=== PATIENT | male | born 1965 | race Caucasian/White ===

== ENCOUNTER → 2020-10-24 | Outpatient (CLI) | payer OTHER ==
--- NOTE | 2020-10-24 10:17 | ECHOF ---
Referral Reason:I10 Essential hypertension; Edema MEASUREMENTS -------- HEIGHT: 182.9 cm WEIGHT: 149.7 kg BP: IVSd: 1.8 cm (0.6 - 1.1) LVIDd: 3.0 cm (3.9 - 5.3) LVPWd: 1.9 cm (0.6 - 1.1) IVSs: 2.1 cm LVIDs: 2.3 cm LVPWs: 2.7 cm Ao Diam: 3.7 cm (2.0 - 3.7) AV Cusp: 2.0 cm (1.5 - 2.6) LA Diam: 3.5 cm (2.7 - 3.8) MV EXCURSION: 23.037 mm (> 18.000) MV EF SLOPE: 102 mm/s (70 - 150) EPSS: 0.6 cm MV E Abhinav: 0.68 m/s MV DecT: 196 ms MV A Abhinav: 0.47 m/s MV E/A Ratio: 1.45 RAP: 5.00 mmHg RVSP: 9.79 mmHg FINDINGS -------- This was a technically difficult study with suboptimal views. The left ventricular size is normal. There is moderate concentric left ventricular hypertrophy. O verall left ventricular systolic function is low-normal with, an EF between 50 - 55 %. The right ventricle is normal in size. The left atrial size is normal. The right atrium was not well visualized. xx ml of Lumason was utilized for enhancement of images. The aortic valve was not well visualized. The mitral valve is normal. There is trace mitral regurgitation. The tricuspid valve appears structurally normal. Trace tricuspid regurgitation present. Right leno tricular systolic pressure is normal at < 35 mmHg. There is no pulmonic regurgitation present. The aortic root size is normal. IVC Not well visulized. There is no pericardial effusion. CONCLUSIONS -------- 1. The left ventricular size is normal. 2. There is moderate concentric left ventricular hypertrophy. 3. Overall left ventricular systolic function is low-normal with, an EF between 50 - 55 %. 4. There is trace mitral regurgitation. 5. Trace tricuspid regurgitation present. 6. There is no pericardial effusion. ROLLWAY MAN: Gerda Morgan RD
== END | disposition home or self-care (01) ==
LOC: RADECHMAIN 08:26
PROVIDERS: ATTEND Family Medicine
DX: I08.1 Rheumatic disorders of both mitral and tricuspid valves (principal)
CPT/HCPCS: 93306; Q9950

== ENCOUNTER → 2021-03-21 | Outpatient (CLI) | payer OTHER ==
--- NOTE | 2021-03-21 13:02 | XR ---
Right hip HISTORY: [id number] RT HIP PAIN 2 views of the right hip There is marked joint space loss, marginal spurring, subchondral geode formation, remodeling of the f emoral head. No fracture or dislocation. Alignment is maintained. There is overlying artifact. IMPRESSION: Osteoarthritis is advanced.
== END | disposition home or self-care (01) ==
LOC: RADXRYALE 10:53
PROVIDERS: ATTEND Physician Assistant Medical
DX: M16.11 Unilateral primary osteoarthritis, right hip (principal)
CPT/HCPCS: 73502

== ENCOUNTER → 2021-06-19 | Outpatient (CLI) | payer OTHER ==
[2021-06-19 14:27] LABS: Partial Thromboplastin Time 26.8 sec (22.0-30.0); Prothrombin Time 10.8 sec (9.0-12.0)
[2021-06-19 18:20] LABS: HGB 15.6 g/dL (13.0-17.0); MCH 28.6 pg (27.0-32.0); MCHC 32.5 g/dL (32.0-37.0); MCV 88.1 fL (80.0-97.0); Mean Platelet Volume 10.7 fL (9.5-12.2); NRBC Per 100 WBC 0 /100 WBCS (0.0-0.0); Platelet Count 256 X 10*3/uL (140-440); RBC 5.45 X 10*6/uL (4.40-5.60); RDW 13.2 % (11.5-14.5); WBC 8.99 X 10*3/uL (4.50-10.00)
[2021-06-19 18:28] LABS: African American GFR (CKD) 106.8 (60.0-200.0); Albumin 4.4 g/dL (3.8-4.9); Albumin/Globulin Ratio 1.42 (1.60-3.17); Anion Gap 10.6 mmol/L (10.00-18.00); BUN/Creat Ratio 25.24 Ratio (12.00-20.00); Blood Urea Nitrogen 23.6 mg/dL (9.0-27.0); Calcium 9.8 mg/dL (8.7-10.3); Carbon Dioxide 26.8 mmol/L (20.0-27.5); Globulin 3.1 g/dL (1.6-3.3); Non-African American GFR(CKD) 92.1 (60.0-200.0); Total Bilirubin 0.6 mg/dL (0.30-1.20); Total Protein 7.5 g/dL (6.2-8.2)
[2021-06-19 18:55] LABS: Appearance,Urine Clear (Clear); Bilirubin,Urine Negative (Negative); Blood,Urine Negative (Negative); Color,Urine Yellow (Yellow); Ketones,Urine Negative (Negative); Nitrite,Urine Negative (Negative); Urobilinogen,Urine 0.2 (0.2,1.0)
== END | disposition home or self-care (01) ==
LOC: LABPAT 11:36
PROVIDERS: ATTEND Orthopaedic Surgery
DX: Z01.812 Encounter for preprocedural laboratory examination (principal)
CPT/HCPCS: 36415; 80053; 81003; 85027; 85610; 85730; 87070

== ENCOUNTER 2021-07-12 10:37 | Day surgery (SDC) | payer OTHER ==
[2021-07-07 15:58] VITALS: BMI 45.3
[~2021-07-12 10:37] MED LIST: ACETAMINOPHEN TAB 500 MG TAB PO PRN; DEXAMETHASONE SOD PHOSPHATE 10 MG/ML 1 ML VIAL IV PRN; DOCUSATE 100 MG CAP PO PRN; FAMOTIDINE 20 MG/2 ML VIAL IVP PRN; HYDROmorphone 0.5 MG/0.5 ML SYRINGE IVP PRN; KETOROLAC 15 MG/ML 1 ML VIAL IVP PRN; LIDOCAINE 1% (10MG/ML) FOR IV START INTRADERMA PRN; ONDANSETRON 4 MG/2 ML VIAL IVP PRN; TRANEXAMIC ACID IN NACL,ISO-OS 1,000 MG in SALINE 1 100ML.BAG IVPB PRN; oxyCODONE ER 10 MG TAB.ER.12H PO PRN
[2021-07-12] MEDS ORDERED: oxyCODONE ER 10 MG TAB.ER.12H PO PRN (11:45)
[2021-07-12] MEDS: LACTATED RINGERS 1,000 ML IV SCH (11:46)
[2021-07-12] MEDS ORDERED: diphenhydrAMINE 50 MG/ML 1 ML VIAL IVP ONE (12:44)
[2021-07-12] MEDS ORDERED: GLYCOPYRROLATE 0.2 MG/ML 2 ML VIAL ONE (13:54)
[2021-07-12] MEDS ORDERED: SUCCINYLCHOLINE CHLORIDE VIAL 200 MG/10 ML VIAL IV ONE (13:54)
[2021-07-12] MEDS ORDERED: PHENYLEPHRINE-0.9% NACL SYG 1,000 MCG/10 ML SYRINGE ONE (13:54)
[2021-07-12] MEDS ORDERED: fentaNYL (PF) 50 MCG/ML 2 ML AMP ONE (13:54)
[2021-07-12] MEDS ORDERED: PROPOFOL 10 MG/ML 20 ML VIAL IV ONE (13:54)
[2021-07-12] MEDS ORDERED: MIDAZOLAM 2 MG/2 ML VIAL ONE (13:54)
[2021-07-12] MEDS ORDERED: HYDROmorphone (PF) 1 MG/ML ONE (13:54)
[2021-07-12] MEDS ORDERED: ROCURONIUM 10 MG/ML (5 ML VIAL) IV ONE (13:54)
[2021-07-12] MEDS ORDERED: NEOSTIGMINE 1 MG/ML 10 ML VIAL ONE (13:54)
[2021-07-12] MEDS ORDERED: LIDOCAINE 2% INJ 20 MG/ML (2 ML VIAL) ONE (13:54)
[2021-07-12] MEDS ORDERED: TRANEXAMIC ACID IN NACL,ISO-OS 1,000 MG/100 ML BAG ONE (13:54)
[2021-07-12] MEDS ORDERED: SODIUM CHLORIDE 0.9% 100 ML with ceFAZolin 3,000 MG IV ONE ×2 (13:59)
[2021-07-12] MEDS: ROPIVACAINE/EPI/CLONIDINE/KET 50 ML SYRINGE MISCELLANE PRN ×2 (15:15→16:36)
[2021-07-12] MEDS ORDERED: LACTATED RINGERS 1,000 ML IV ONE (15:58)
[2021-07-12] MEDS ORDERED: VANCOMYCIN 1,000 MG VIAL MISCELLANE ONE (16:36)
[2021-07-12] MEDS ORDERED: NALOXONE 0.4 MG/ML 1 ML VIAL IV PRN (17:22)
[2021-07-12] MEDS ORDERED: HYDROmorphone 1 MG/ML 1 ML SYRINGE IVP PRN (17:22)
[2021-07-12] MEDS ORDERED: hydrOXYzine pamoate 25 MG CAP PO PRN (17:22)
[2021-07-12] MEDS ORDERED: ONDANSETRON 4 MG/2 ML VIAL IVP PRN (17:22)
[2021-07-12] MEDS ORDERED: HYDROcodone/APAP 5-325MG 1 EACH TAB PO PRN (17:22)
[2021-07-12] MEDS ORDERED: HYDROmorphone 0.5 MG/0.5 ML SYRINGE IVP PRN ×2 (17:22)
--- NOTE | 2021-07-12 17:29 | P.OP ---
Date of Procedure: 07/12/21 Preoperative Diagnosis: 1. Severe right hip osteoarthritis 2. BMI 45.5 3. 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 Jose Alfredo Trident II 54 mm acetabular cup 2. [place] [employer]ign[employer] size #7 high offset femoral stem 3. Biolox delta ceramic head 36 mm, -5 mm neck Anesthesia: GETA Surgeon: Wallace Melgoza Teletype Mechanic #1: Mary Jane Hughes Estimated Blood Loss (ml): 400 IV fluids (ml): 1,200 Pathology: other (Femoral head to pathology) Condition: stable Disposition: PACU Indications for Procedure: I had a long discussion with the patient in the office on the potential risks and complications of an elective total hip replacement through a direct anterior approach. Risks discussed include, but are certainly not limited to, risks from anesthesia, superficial infection requiring local wound care or antibiotics, deep kane-prosthetic joint infection and the treatment required to eradicate infection, intraoperative fracture, postoperative periprosthetic fracture, damage to local blood vessels or nerves particularly the lateral femoral cutaneous nerve, delayed wound healing requiring local wound care or possibly surgical debridement, hip dislocation, leg length discrepancy, soft tissue irritation around the total hip implant such as iliopsoas tendinitis or trochanteric bursitis, wear and osteolysis from the implants, squeaking or audible noises, groin pain, thigh pain, heterotopic ossification, stiffness, aseptic loosening of the implants, dissatisfaction with surgical outcome, need for revision surgery, DVT, PE, swelling of the operative extremity, acute coronary event, stroke, failure to thrive, and possibly loss of life or limb. The patient understands that while these are the most common complications after an elective hip replacement there are certainly other less common complications possible. They were given ample time to ask questions regarding the potential complications of a hip replacement. Following our discussion the patient provided their verbal and written consent to go forward with an elective total hip replacement. Operative Findings: Severe right hip osteoarthritis Description of Procedure: The patient was identified in the preoperative holding area and the correct hip was marked with my initials. I reviewed the procedure and consent with the patient. All of their questions were answered. The patient was then brought back into the operating room by anesthesia. While on the [facility] anesthesia was administered by the anesthesia team. Preoperative antibiotics and tranexamic acid were also given. After the patient was under anesthesia I examined their ankles to determine their preoperative leg length discrepancy. The skin over the anterior aspect of the hip was shaved to remove hair over the site of planned incision. Both feet and ankles were padded with webril and boots for th e [place] were applied. The patient was then carefully transferred onto the [place] table. A perineal post was immediately placed. The arms were placed on arm holders and were well-padded. Both boots were secured to the spars on the [place] table. The patient was positioned so that the pelvis was centered over the post. Nonsterile drapes were applied. A timeout was performed identifying the correct patient, operative extremity, and procedure. At this point fluoroscopy was brought in to take preoperative images of the pelvis and operative hip. Using the standing AP pelvis from the office as a template, a comparable image was obtained with fluoroscopy. A metallic bar was used to create a bi-ischial line for use as a reference to leg length adjustments during the procedure. Global offset was also measured on both the operative and nonoperative leg. Fluoroscopy was then brought out and a pre-scrub using a chlorhexidine scrub brush was performed. The operative limb was then prepped and draped in the standard sterile fashion. An anterior longitudinal incision was made lateral and distal to the ASIS. The skin and subcutaneous tissues were incised sharply. The underlying tensor fasc ia was identified and incised in its midportion. The fascia was dissected free from the underlying muscle and the muscle belly was retracted. A blunt tipped cobra retractor was placed over the superior neck under the muscle fibers of the gluteus minimus. The deep enveloping fascia of the tensor was incised. The anterior leash of vessels were then identified and cauterized. The fascia between the rectus and the capsule was then incised and the pre-capsular fat was excised. A second Cobra was placed inferior to the neck. The interval between the rectus and iliocapsularis and the hip capsule was developed and a retractor was placed carefully over the anterior rim of the acetabulum. A T-shaped anterior capsulotomy was performed. The superior capsular leaflet was left in place in the inferior capsular flap was excised. The Cobra retractors were placed intracapsularly. We then made a femoral neck osteotomy according to preoperative and intraoperative templating and confirmed the level of the osteotomy using fluoroscopic imaging. The femoral head was removed, passed off to the back table, and sized. The superior capsular flap was excised. Retractors were placed circumferentially exposing the acetabulum. We then circumferentially debrided the acetabulum free of labrum and osteophytes. The pulvinar was removed to fully visualize the cotyloid fossa. We then sequentially reamed to achieve peripheral fit and excellent bleeding subchondral bone. The socket was thoroughly irrigated. The acetabular component was impacted into the appropriate position using fluoroscopy to guide version, inclination, and depth of insertion taking care to have a comparable image of the AP pelvis to the standing image taken in the office. An excellent press-fit was achieved and final position was confirmed using fluoroscopy. The press fit was augmented with bony cancellus dome screws. The liner was then impacted into the socket. Attention was then turned to the femur. The remnant dorsal lateral capsule was excised. The short external rotators were visible and protected. A bone hook was used to confirm appropriate translation of the trochanter away from the acetabulum. The leg was then extended and adducted and the bone hook was used to elevate the femur for broaching. Due to the patient's large size and proximal release of the tensor muscle belly off the ASIS was required to gain access to the proximal femur. A box osteotome and blunt tipped canal sound was then utilized to gain access to the femoral canal. We then sequentially broached the femur in appropriate anteversion until excellent torsional stability was achieved. The neck cut was brought flush to the trial broach with a calcar planar. A trial neck and head were then placed onto the broach and the hip was atraumatically reduced under direct visualization. External rotation to 90 was performed to assess stability. Fluoroscopy was brought in. An AP and lateral fluoroscopic image of the proximal femur was obtained to assess position and fill of the trial broach. An AP of the pelvis was then obtained and matched to the preoperative image taken. A bi-ischial bar was then placed and measur ements were taken to assess changes in length and offset. The hip was then carefully dislocated, the proximal femur was exposed, and the trial implants were removed. The wound and proximal femur was thoroughly irrigated using sterile saline and pulsatile lavage. The final femoral implant was dispensed and gently tapped into place generating an excellent press-fit. The trunnion was cleansed and the final head was tapped into place to engage the Mackey taper. The acetabulum was irrigated and visualized to be free of debris. The hip was carefully reduced. Stability was checked clinically with external rotation to 90 and there was no evidence of instability. Final fluoroscopic images were taken. The wound was then thoroughly irrigated and soaked with a dilute Betadine rinse for 3 minutes. 3 L of sterile saline was irrigated through the wound using pulsatile lavage. Local anesthetic cocktail was injected into the soft tissues around the surgical field. A deep drain was placed. Due to the patient's size 2 g of vancomycin powder was placed in the wound. The proximal release of the tensor muscle belly was repaired with Ethibond suture using a modified Aman-Lyndon type stitch. The wound was then closed in layers. A sterile dressing was placed over the surgical incision and drain site. The drapes were taken down and the patient was carefully transferred off of the [place] table. Following removal of the boots the leg lengths felt acceptable. The patient was then taken to recovery room having tolerated the procedure well. Mary Jane Hughes PA-C was required as a skilled ophthalmic medical assistant for patient positioning, surgical exposure, retraction, placement of implants, and closure of the surgical wound. PLAN: The patient can weight-bear as tolerated on the operative extremity. 2 doses of postoperative antibiotics. Due to the patient's history of DVT and PE following a back injury he'll be treated with Eliquis for 4 weeks to lower his risk of DVT. Physical therapy for gait training. Discontinue drain postoperative day #1 if output is less than 100 mL per shift.
--- NOTE | 2021-07-12 18:15 | XR ---
EXAMINATION TYPE: XR Hip Limited RT, FL guidance operating room DATE OF EXAM: 07/12/2021 4:49 PM INDICATION: Patient age:Male; 56 years old; Reason for study: RIGHT ANTERIOR HIP; Intraoperative fluoroscopic services were provided for internal fixation of a right hip. Total fluoro scopy time is 41 sec with a total of 8 submitted images to PACS. Please see the operative note for fu rther details.
[2021-07-12] MEDS ORDERED: SENNOSIDES-DOCUSATE SODIUM 1 EACH TAB PO SCH (21:00)
[2021-07-12] MEDS: ceFAZolin 3 GM in SODIUM CHLORIDE 0.9% 100 ML IVPB SCH (21:55)
[2021-07-13] MEDS: ceFAZolin 3 GM in SODIUM CHLORIDE 0.9% 100 ML IVPB SCH (05:55)
[2021-07-13] MEDS: HYDROcodone/APAP 5-325MG 1 EACH TAB PO PRN ×2 (06:07→14:00)
[2021-07-13 08:17] VITALS: PULSE 69; RESP 16; TEMP 97.9
[2021-07-13] MEDS: LACTATED RINGERS 1,000 ML IV SCH (08:57)
[2021-07-13 09:00] LABS: Basophils # (A) 0.02 X 10*3/uL (0.00-0.10); Basophils % (A) 0.1 %; Eosinophils # (A) 0 X 10*3/uL (0.04-0.35); Eosinophils % (A) 0 %; HCT 38.9 % (39.6-50.0); HGB 12.9 g/dL (13.0-17.0); Immature Grans, Automated 0.4 %; Lymphocytes % (A) 8.9 %; MCH 28.7 pg (27.0-32.0); MCHC 33.2 g/dL (32.0-37.0); MCV 86.6 fL (80.0-97.0); Mean Platelet Volume 10.4 fL (9.5-12.2); Monocytes # (A) 1.42 X 10*3/uL (0.20-1.00); Monocytes % (A) 8.4 %; NRBC Per 100 WBC 0 /100 WBCS (0.0-0.0); Neutrophils # (A) 13.94 X 10*3/uL (1.80-7.70); Neutrophils % (A) 82.2 %; Platelet Count 263 X 10*3/uL (140-440); RBC 4.49 X 10*6/uL (4.40-5.60); WBC 16.94 X 10*3/uL (4.50-10.00)
[2021-07-13] MEDS ORDERED: APIXABAN 2.5 MG TABLET PO SCH (09:00)
[2021-07-13 13:44] VITALS: BP 131/73
--- NOTE | 2021-07-13 14:12 | P.DS ---
Providers Expected date of discharge: 07/13/21 Attending physician: Wallace Melgoza Consults: 07/12/21 18:53 Consult Physician Routine Consulting Provider: Beau Del Castillo Consult Reason/Comments: medical management Do you want consulting provider notified?: Yes Primary care physician: Prieto [facility] Course: This is a 56-year-old male who has been followed in our office by Dr. Melgoza f or continued complaints of right hip pain due to left hip osteoarthritis. Treatment options were discussed, and patient elected to undergo a right total hip arthroplasty. Patient was seen pre-operatively by Silvana Lee PA-C and cleared for surgery. Patient underwent a right total hip arthroplasty on 07/12/21. The procedure was performed without complication or sequelae. The patient is doing fairly well postoperatively. Vital signs and labs are stable on postoperative day #1. Patient was examined bedside today. Patient states he is overall doing very well and the pain in his right hip is well-controlled. His hemovac drain was pulled earlier this morning. He has been ambulating with a walker with minimal assistance. He has worked with physical therapy this morning. Patient is tolerat ing his breakfast well. He is voiding with issues. He has not had a bowel movement yet, he denies abdominal pain. Patient is comfortable being discharged home today. Patient denies chest pain, shortness of breath, nausea, vomiting, fevers, chills. On examination, the patient is sitting up in the bedside chair in no apparent distress. He is alert and orientated 3. On inspection of the right hip, there is a clean, dry, intact surgical dressing in place. There is no bleeding or drainage the dressing. Patient has good strength and ROM of the right ankle and toes. Motor and sensory function is intact of the right lower extremity. Femoral nerve function intact. The dorsalis pedis pulse is easily palpable, the right lower extremity is warm and well perfused with brisk capillary refill. Calf is soft and non-tender to palpation. Patient is discharged home with home health in good condition, pending medical clearance. Patient will follow-up with Dr. Melgoza in the office in 2 weeks. Please see med rec for accurate list of discharge medication. Plan - Discharge Summary Discharge Rx Participant: Yes New Discharge Prescriptions: New Docusate [Colace] 100 mg PO BID #60 capsule Apixaban [Eliquis] 2.5 mg PO BID 35 Days #70 tab Omeprazole 40 mg PO DAILY 30 Days #30 cap HYDROcodone/APAP 5-325MG [[place] 5-325] 1 - 2 tab PO Q6HR PRN #40 tab PRN Reason: Pain Continue hydrALAZINE HCL [Apresoline] 50 mg PO PC-LUNCH Atorvastatin [Lipitor] 80 mg PO PC-LUNCH hydroCHLOROthiazide 25 mg PO PC-LUNCH Levothyroxine Sodium [Levoxyl] 75 mcg PO PC-LUNCH Fenofibrate,Micronized 200 mg PO PC-LUNCH Benazepril HCl [Lotensin] 20 mg PO PC-LUNCH Discontinued Furosemide [Lasix] 40 mg PO PC-LUNCH ALPRAZolam [Xanax] 0.5 mg PO DAILY PRN PRN Reason: Anxiety when driving amLODIPine [Norvasc] 10 mg PO DAILY No Action Meloxicam [Mobic] 15 mg PO PC-LUNCH Aspirin [Adult Low Dose Aspirin EC] 81 mg PO PC-LUNCH Discharge Medication List Aspirin [Adult Low Dose Aspirin EC] 81 mg PO PC-LUNCH 06/27/21 [History] Atorvastatin [Lipitor] 80 mg PO PC-LUNCH 06/27/21 [History] Benazepril HCl [Lotensin] 20 mg PO PC-LUNCH 06/27/21 [History] Fenofibrate,Micronized 200 mg PO PC-LUNCH 06/27/21 [History] Levothyroxine Sodium [Levoxyl] 75 mcg PO PC-LUNCH 06/27/21 [History] Meloxicam [Mobic] 15 mg PO PC-LUNCH 06/27/21 [History] hydrALAZINE HCL [Apresoline] 50 mg PO PC-LUNCH 06/27/21 [History] hydroCHLOROthiazide 25 mg PO PC-LUNCH 06/27/21 [History] Apixaban [Eliquis] 2.5 mg PO BID 35 Days #70 tab 07/13/21 [Rx] Docusate [Colace] 100 mg PO BID #60 capsule 07/13/21 [Rx] HYDROcodone/APAP 5-325MG [[place] 5-325] 1 - 2 tab PO Q6HR PRN #40 tab 07/13/21 [Rx] Omeprazole 40 mg PO DAILY 30 Days #30 cap 07/13/21 [Rx] Follow up Appointment(s)/Referral(s): [facility], [NON-STAFF] - As Needed ([facility] will call you to schedule your in home physical therapy visits. ) Prieto Bowman DO [Primary Care Provider] - 1 Week (we recommend to check your blood pressure and blood tests including white cell count with your doctor ) Wallace Melgoza MD [Medical Doctor] - 07/27/21 9:45 am Patient Instructions/Handouts: Precautions after Total Joint Replacement Surgery (DC), Hip Arthroscopy (DC), Joint Replacement Surgery (DC), Total Hip Replacement (DC) Activity/Diet/Wound Care/Special Instructions: Weight bear as tolerated on operative leg with a walker. Keep operative dressing intact until follow-up. Take pain medications as needed. Take Eliquis as prescribed for blood clot prevention. Follow-up in the office in [address] Melgoza. Call the office with any questions or concerns, Discharge Disposition: HOME WITH HOME HEALTH SERVICES
--- NOTE | 2021-07-13 18:19 | P.CONS ---
History of Present Illness - History of Present Illness This is a pleasant 56 years old male with past medical history of Deep Vein T hrombosis, pulmonary embolism, Hyperlipidemia, Hypertension, hypothyroidism Presents with severe osteoarthritis status post right total hip arthroplasty. Today is postop day #1 Postoperative chair comfortable and pleasant, is denying any complaints, he says that his pain in the hip is controlled. No chest pain or dyspnea. No change in urine or bowel habits. No abdominal pain or vomiting. he tolerates diet well. He didn't have bowel movement but is passing gas. No dysuria. His hemodynamically stable and blood pressure 120/73. WBC is 16.9 most of CBC is unremarkable. Review of Systems Review of systems CONSTITUTIONAL: No fever, no malaise, no fatigue. HEENT: No recent visual problems or hearing problems. Denied any sore throat. CARDIOVASCULAR: No orthopnea, PND, no palpitations, no syncope. PULMONARY: No shortness of breath, no cough, no hemoptysis. GASTROINTESTINAL: No diarrhea, no nausea, no vomiting, no abdominal pain. Normoactive bowel sounds. NEUROLOGICAL: No headaches, no weakness, no numbness. HEMATOLOGICAL: Denies any bleeding or petechiae. GENITOURINARY: Denies any burning micturition, frequency, or urgency. MUSCULOSKELETAL/RHEUMATOLOGICAL: Denies any joint pain, swelling, or any muscle pain. ENDOCRINE: Denies any polyuria or polydipsia. Past Medical History Past Medical History: Deep Vein Thrombosis (DVT), Hyperlipidemia, Hypertension, Thyroid Disorder Additional Past Medical History / Comment(s): DVT lower extrem/PE. History of Any Multi-Drug Resistant Organisms: None Reported Past Surgical History: Tonsillectomy Additional Past Surgical History / Comment(s): Knee surgery, Past Anesthesia/Blood Transfusion Reactions: No Reported Reaction Past Psychological History: No Psychological Hx Reported Smoking Status: Never smoker Past Alcohol Use History: Occasional Past Drug Use History: None Reported - Past Family History Mother Family Medical History: No Reported History Medications and Allergies Home Medications Medication Instructions Recorded Confirmed Type Aspirin [Adult Low Dose Aspirin EC] 81 mg PO PC-LUNCH 06/27/21 07/07/21 History Atorvastatin [Lipitor] 80 mg PO PC-LUNCH 06/27/21 07/07/21 History Benazepril HCl [Lotensin] 20 mg PO PC-LUNCH 06/27/21 07/07/21 History Fenofibrate,Micronized 200 mg PO PC-LUNCH 06/27/21 07/07/21 History Levothyroxine Sodium [Levoxyl] 75 mcg PO PC-LUNCH 06/27/21 07/07/21 History Meloxicam [Mobic] 15 mg PO PC-LUNCH 06/27/21 07/07/21 History hydrALAZINE HCL [Apresoline] 50 mg PO PC-LUNCH 06/27/21 07/07/21 History hydroCHLOROthiazide 25 mg PO PC-LUNCH 06/27/21 07/07/21 History Apixaban [Eliquis] 2.5 mg PO BID 35 Days #70 tab 07/13/21 Rx Docusate [Colace] 100 mg PO BID #60 capsule 07/13/21 Rx HYDROcodone/APAP 5-325MG [[place] 1 - 2 tab PO Q6HR PRN #40 tab 07/13/21 Rx 5-325] Omeprazole 40 mg PO DAILY 30 Days #30 cap 07/13/21 Rx Allergies Allergy/AdvReac Type Severity Reaction Status Date / Time No Known Allergies Allergy Verified 07/12/21 11:03 Physical Exam Vitals: Vital Signs Temp Pulse Pulse Resp BP Pulse Ox 07/13/21 08:00 97.9 F 69 16 107/63 96 07/13/21 01:49 98.0 F 64 18 138/64 100 07/12/21 20:35 55 L 126/65 95 07/12/21 20:05 54 L 132/71 93 L 07/12/21 19:51 54 L 114/69 95 07/12/21 19:35 75 129/73 96 07/12/21 19:20 62 128/71 99 07/12/21 19:05 73 128/68 95 07/12/21 18:50 58 L 128/65 96 07/12/21 18:35 97.4 F L 61 18 139/64 95 07/12/21 18:22 75 16 120/56 96 07/12/21 18:07 71 16 113/55 97 07/12/21 17:52 66 16 117/56 99 07/12/21 17:37 96.9 F L 76 18 114/59 99 Intake and Output 07/12/21 07/13/21 07/13/21 22:59 06:59 14:59 Intake Total 800 Output Total 400 150 Balance 400 -150 Intake: IV 800 Output: Drainage 150 Right Hip 150 Estimated Blood Loss 400 Other: Weight 148 kg -GENERAL: The patient is alert and oriented x3, not in any acute distress. morbidly obese HEENT: Pupils are round and equally reacting to light. EOMI. No scleral icterus. No conjunctival pallor. Normocephalic, atraumatic. No pharyngeal erythema. No thyromegaly. CARDIOVASCULAR: S1 and S2 present. No murmurs, rubs, or gallops. PULMONARY: Chest is clear to auscultation, no wheezing or crackles. ABDOMEN: Soft, nontender, nondistended, normoactive bowel sounds. No palpable organomegaly. MUSCULOSKELETAL: No joint swelling or deformity. -EXTREMITIES: No cyanosis, clubbing, or pedal edema. Right hip wound with dressing is replaced. Rest of exam is deferred the surgery team NEUROLOGICAL: Gross neurological examination did not reveal any focal deficits. SKIN: No rashes. no petechiae. Results CBC & Chem 7: 07/13/21 06:45 Labs: Abnormal Lab Results - Last 24 Hours (Table) 07/13/21 Range/Units 06:45 WBC 16.94 H (4.50-10.00) X 10*3/uL Hgb 12.9 L (13.0-17.0) g/dL Hct 38.9 L (39.6-50.0) % Immature Gran # 0.06 H (0.00-0.04) X 10*3/uL Neutrophils # 13.94 H (1.80-7.70) X 10*3/uL Monocytes # 1.42 H (0.20-1.00) X 10*3/uL Eosinophils # 0 L (0.04-0.35) X 10*3/uL Assessment and Plan Assessment: Severe osteoarthritis status post right hip total arthroplasty Leukocytosis, reactive secondary to surgery, no fever, no signs of infection, no need for antibiotics. Risks more than benefits History of the venous thrombosis and pulmonary embolism Hyperlipidemia Hypertension Hypothyroidism Obesity with BMI of 45.5 Plan: this is a pleasant 56 years old male with right total hip arthroplasty he is hemodynamically stable. we recommend to resume blood pressure medication hydralazine, hydrochlorothiazide while holding Lasix and Norvasc while close monitoring of blood pressure Patient has started on Eliquis by orthopedic team Patient medically stable Recommend patient follow up with PCP in one week after discharge and he was instructed with the same with Dr. Bowman and he agrees. we Recommend to monitor blood pressure and obesity with PCP and patient was instructed with the same. Thank you for consulting us
== END 2021-07-13 14:35 | disposition home health service (06) ==
LOC: OR 10:37 → 4SSUR 17:05 → OR 07-13 14:35
PROVIDERS: ATTEND Orthopaedic Surgery
DX: M16.11 Unilateral primary osteoarthritis, right hip (principal); I10 Essential (primary) hypertension; E78.2 Mixed hyperlipidemia; F41.1 Generalized anxiety disorder; E03.9 Hypothyroidism, unspecified; Z86.718 Personal history of other venous thrombosis and embolism; Z86.711 Personal history of pulmonary embolism; Z97.3 Presence of spectacles and contact lenses; Z82.49 Family history of ischemic heart disease and other diseases of the circulatory system; F17.220 Nicotine dependence, chewing tobacco, uncomplicated; Z79.899 Other long term (current) drug therapy; Z98.890 Other specified postprocedural states; Z79.82 Long term (current) use of aspirin; Z79.1 Long term (current) use of non-steroidal anti-inflammatories (NSAID); Z79.890 Hormone replacement therapy
CPT/HCPCS: 27130; 97161; 85025; 88300; 73501; C1776; J2250; J3370; J0330; J1200; J1100; J2710; J0690 ×3; J2405; J3010; J1170; J1885; J2370; J2704; J2001

== ENCOUNTER → 2023-09-04 | Outpatient (CLI) | payer OTHER ==
[2023-09-04 14:58] LABS: Partial Thromboplastin Time 27.8 sec (22.0-30.0)
[2023-09-04 18:41] LABS: HCT 45.4 % (39.6-50.0); HGB 15.2 g/dL (13.0-17.0); MCH 28.9 pg (27.0-32.0); MCHC 33.5 g/dL (32.0-37.0); MCV 86.3 FL (80.0-97.0); Mean Platelet Volume 10.6 FL (9.5-12.2); NRBC Per 100 WBC 0 X 10*3/uL (0.00-0.01); Platelet Count 272 X 10*3/uL (140-440); RBC 5.26 X 10*6/uL (4.40-5.60); RDW 13.4 % (11.5-14.5); WBC 7.88 X 10*3/uL (4.50-10.00)
[2023-09-04 19:16] LABS: BUN/Creat Ratio 21.85 Ratio (12.00-20.00); Blood Urea Nitrogen 28.4 mg/dL (9.0-27.0); Chloride 100 mmol/L (96-109); Glucose 141 mg/dL (70-110); Sodium 140 mmol/L (135-145)
[2023-09-04 19:17] LABS: ALT 33 U/L (10-49); AST 22 U/L (14-35); Albumin 4.6 g/dL (3.8-4.9); Albumin/Globulin Ratio 1.77 Ratio (1.60-3.17); Alkaline Phosphatase 63 U/L (41-126); Carbon Dioxide 26.2 mmol/L (21.6-31.8); Globulin 2.6 g/dL (1.6-3.3); Total Bilirubin 0.6 mg/dL (0.3-1.2); Total Protein 7.2 g/dL (6.2-8.2)
== END | disposition home or self-care (01) ==
LOC: LABWHC1 12:50
PROVIDERS: ATTEND Orthopaedic Surgery
DX: Z01.812 Encounter for preprocedural laboratory examination (principal); M16.12 Unilateral primary osteoarthritis, left hip; Z22.322 Carrier or suspected carrier of Methicillin resistant Staphylococcus aureus; E11.9 Type 2 diabetes mellitus without complications
CPT/HCPCS: 80053; 83036; 85027; 85610; 85730; 86850; 86900; 86901; 87070